=== PATIENT | male | born 1955 | race Caucasian/White ===

== ENCOUNTER 2018-10-12 17:15 | Emergency (ER) | payer MEDICARE ==
[2018-10-12 18:07] LABS: Hematocrit 42.1 % (42-50); Hemoglobin 14.5 gm/dl (12.5-18.0); Mean Cell Volume 95.5 fl (78-100); Mean Corpuscular Hemoglobin 32.9 pg (26-32); Mean Corpuscular Hgb Concent. 34.4 g/dl (32-36); Mean Platelet Volume 9.6 fl (6-9.5); Platelet Count 240 K/mm3 (150-450); Red Blood Count 4.41 M/mm3 (4.1-5.6); Red Cell Distribution Width 13.6 % (11.5-14.0); White Blood Count 11.8 K/mm3 (4.0-10.5)
[2018-10-12 18:15] LABS: INR 3.88 (0.8-3.0); PROTIME 45.7 SECONDS (8.83-12.87)
--- NOTE | 2018-10-12 18:27 | ERPHSYRPT ---
- History of Present Illness Time Seen by Provider: 10/12/18 17:21 Source: patient Exam Limitations: no limitations Patient Subjective Stated Complaint: Pt states "I have a bad knee and last night it started to swell and now it really hurts." Triage Nursing Assessment: Pt alert and oriented X 3, skin pwd. Pt left knee swollen, no redness noted, no warmth noted, csm x 4. Pt in no apparent respiratory distress. PT unable to bear weight on it. Physician History: patient developed spontaneous pain and swelling of left knee this am- no known injury- s/p total knee left on 2009; on blood thinner - coumadin for blood clots - no trauma; no fever; no sob; no changein dose- no signs of bleeding elsewhere ; no CP; selling seems alittle less in knee now then am but leg still swolllen Method of Injury: unknown Occurred: this morning Quality: constant Severity of Pain-Max: severe Severity of Pain-Current: moderate Lower Extremities Pain: knee: left (pain and swelling) Modifying Factors: Improves With: immobilization (helps), movement (aggravate) Allergies/Adverse Reactions: No Known Drug Allergies Allergy (Verified 09/28/14 11:28) Home Medications: Nortriptyline HCl [Pamelor] 50 mg PO HS 01/16/13 [History] Divalproex Sodium [Depakote] 250 mg PO DAILY 07/28/14 [History] Lisinopril 10 mg [Zestril 10 MG] 20 mg PO DAILY 07/28/14 [History] Hx Tetanus, Diphtheria Vaccination/Date Given: No Hx Influenza Vaccination/Date Given: No Hx Pneumococcal Vaccination/Date Given: No Immunizations Up to Date: Yes - Review of Systems Constitutional: No Symptoms Eyes: No Symptoms Ears, Nose, & Throat: No Symptoms Respiratory: No Cough, No Dyspnea, No Wheezing Cardiac: No Chest Pain, No Palpitations, No Syncope Abdominal/Gastrointestinal: No Abdominal Pain, No Nausea, No Vomiting, No Diarrhea Genitourinary Symptoms: No Hematuria, No Flank Pain, No Testicle Pain Musculoskeletal: Joint Pain (left knee), Joint Swelling (left knee) Skin: No Symptoms Neurological: No Symptoms Psychological: No Symptoms Endocrine: No Symptoms Hematologic/Lymphatic: Anemia, Blood Clots, Easy Bruising Immunological/Allergic: No Symptoms - Past Medical History Pertinent Past Medical History: Yes Neurological History: Migraines, Other ENT History: No Pertinent History Cardiac History: High Cholesterol, Hypertension Respiratory History: Pulmonary Embolism Endocrine Medical History: No Pertinent History Musculoskeletal History: Arthritis, Other GI Medical History: GERD, Gallbladder Disease, Hernia History: No Pertinent History Psycho-Social History: No Pertinent History Male Reproductive Disorders: No Pertinent History Other Medical History: HS BLOOD CLOTS, PE in 2012, headaches, knee replacement man - Past Surgical History Past Surgical History: Yes Neuro Surgical History: No Pertinent History Cardiac: No Pertinent History Respiratory: No Pertinent History Gastrointestinal: Appendectomy, Hernia Repair Genitourinary: No Pertinent History Musculoskeletal: Joint Replacement Male Surgical History: Vasectomy Other Surgical History: L Knee replacement. right knee scope done twice. left knee scoped once prior to this recent replacement. RIGHT KNEE REPLACMENT - Social History Smoking Status: Former smoker Exposure to second hand smoke: No Alcohol Use: None Drug Use: none Patient Lives Alone: No Significant Family History: heart disease, diabetes, hypertension - Nursing Vital Signs Nursing Vital Signs: Initial Vital Signs Temperature 98.1 F 10/12/18 17:35 Pulse Rate 86 10/12/18 17:35 Respiratory Rate 20 10/12/18 17:35 Blood Pressure 130/75 10/12/18 17:35 O2 Sat by Pulse Oximetry 95 10/12/18 17:35 Pain Scale Pain Intensity 6 - Physical Exam General Appearance: moderate distress, alert, obese Eyes, Ears, Nose, Throat Exam: normal ENT inspection, pharynx normal, moist mucous membranes Neck Exam: normal inspection, non-tender, supple, full range of motion, No JVD Cardiovascular/Respiratory Exam: chest non-tender, normal breath sounds, regular rate/rhythm, heart sounds normal, no ecchymosis, no JVD, no M/R/G, no respiratory distress Gastrointestinal/Abdominal Exam: non-tender, soft, no organomegaly Back Exam: normal inspection, normal range of motion, No CVA tenderness, No vertebral tenderness Hips Exam: bilateral: non-tender, normal inspection, normal range of motion, no evidence of injury Legs Exam: right leg: non-tender, normal inspection, normal range of motion, no evidence of injury, left leg: pain, swelling, other (cant left left leg off bed due to pain- stable to stress; decrease ROM from pain) Knees Exam: right knee: non-tender, normal inspection, normal range of motion, no evidence of injury, left knee: joint effusion, pain, swelling Ankle Exam: bilateral ankle: non-tender, normal inspection, normal range of motion, no evidence of injury Foot Exam: bilateral foot: non-tender, normal inspection, normal range of motion , no evidence of injury Neuro/Tendon Exam: normal sensation, normal motor functions, normal tendon functions, responds to pain, no evidence tendon injury Mental Status Exam: alert, 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, cooperative Skin Exam: normal color, warm, dry, No rash SpO2 Interpretation: normal SpO2: 95 O2 Delivery: Room Air Procedures - Splinting Location of Splint: Left, Knee Type of Splint: Other (knee immobilyzer) Splint Applied By: ED Nurse Pre-Proc Neuro Vasc Exam: normal Post-Proc Neuro Vasc Exam: neurovascular intact - Course Nursing assessment & vital signs reviewed: Yes - Radiology Exams Left Knee X-ray Interpretation: Interpreted by me, Negative, No Fracture, Other (SP TOTAL KNEE W LARGE EFFUSION) - Radiology Ultrasound Exam Left Venous Lower Extremity Ultrasound: tele radiology report, negative (FOR DVT) Ordered Tests: Active Orders 24 hr Category Date Time Status Cold Application STAT Care 10/12/18 17:52 Active Re-Check Vital Signs STAT Care 10/12/18 17:52 Active Splint STAT Care 10/12/18 19:02 Active KNEE (3 VIEWS) Stat Exams 10/12/18 17:53 Taken VENOUS UNILAT/LIMITED EXTREMIT [US] Stat Exams 10/12/18 17:54 Taken CBC Stat Lab 10/12/18 18:05 Completed PROTIME WITH INR Stat Lab 10/12/18 18:05 Completed PTT Stat Lab 10/12/18 18:05 Completed Medication Summary Discontinued Medications Generic Name Dose Route Start Last Admin Trade Name Freq PRN Reason Stop Dose Admin Hydromorphone HCl 2 mg 10/12/18 18:50 10/12/18 19:15 Hydromorphone 1 Mg/Ml Ampule IM 10/12/18 18:51 2 mg STAT ONE Administration Hydromorphone HCl Confirm 10/12/18 19:13 Hydromorphone 1 Mg/Ml Ampule Administered 10/12/18 19:14 Dose 2 mg .ROUTE .[facility] ONE Lab/Rad Data: Laboratory Result Diagrams 10/12/18 18:05 Laboratory Results 10/12/18 10/12/18 10/12/18 Range/Units 18:05 18:05 18:05 WBC 11.8 H (4.0-10.5) K/mm3 RBC 4.41 (4.1-5.6) M/mm3 Hgb 14.5 (12.5-18.0) gm/dl Hct 42.1 (42-50) % MCV 95.5 (78-100) fl MCH 32.9 H (26-32) pg MCHC 34.4 (32-36) g/dl RDW 13.6 (11.5-14.0) % Plt Count 240 (150-450) K/mm3 MPV 9.6 H (6-9.5) fl PT 45.7 H (8.83-12.87) SECONDS INR 3.88 H (0.8-3.0) APTT 45.9 H (24.1-36.1) SECONDS - Progress Progress: improved (after meds), re-examined (aFTER XR) Progress Note: 10/12/18 18:28 ICE APPLIED; LABS DRAWN; xr AND us PENDING inr 3.88PTT 45.9; PT 45.7; PLT 240 H/H = 1410/12/18 19:23 recheck and pain and selling better; instructions given after knee immobilyzer placed Counseled pt/family regarding: diagnosis, need for follow-up, rad results - Departure Departure Disposition: Home Clinical Impression: left knee effusion acute Condition: Stable Critical Care Time: No Referrals: BRENDEN TRUJILLO [Primary Care Provider] - Instructions: Knee Pain (DC) Additional Instructions: ice; elevate; rest; wear splint; see LMD or Orthopod in am for recheck Acute Sprain Instructions lower extremity; R.I.C.E.; wear splint/immobilyzer as directed; observe for neuro-vascular compromise ( change in color; increased pain; cold to touch); Use crutches, walker, cane as directed. FU LMD/ specialist as directed; call for appointment as directed; Return if problems; Take meds as prescribed. Follow-up with family doctor as directed. Call for appointment. Return if any problems. If you smoke please stop. Call or follow up with your family doctor for assistance if you need it to stop. Please wear your seatbelt when driving. Have a nice day. Thank you for allowing us to participate in your care today. :o) Dr Valente Velasco
[2018-10-12] MEDS ORDERED: Hydromorphone 1 mg/ml Ampule IM ONE (18:50)
[2018-10-12] MEDS ORDERED: Hydromorphone 1 mg/ml Ampule ONE (19:13)
[2018-10-12] MEDS ORDERED: NORCO 5/325 MG PO ONE (19:26)
[2018-10-12] MEDS ORDERED: NORCO 5/325 MG ONE (19:59)
[2018-10-12 20:16] VITALS: BP 136/94; PULSE 16; O2SAT 97
--- NOTE | 2018-10-13 08:33 | XRAY ---
Indication: Pain and swelling. History DVT. Two-dimensional sonogram and color Doppler imaging of the major venous vessels of the left leg was performed. Comparison: February 16, 2012. Again no thrombus seen in the examined deep venous vessels of the left leg including greater saphenous vein. Veins demonstrate normal compressibility. Venous waveforms are normal with and without augmentation. Impression: Left leg again negative for DVT. Comment: Preliminary report was given.
--- NOTE | 2018-10-13 08:47 | XRAY ---
Indication: Pain and swelling. Comparison: None 3 views of the left knee demonstrates total knee arthroplasty with intact articulation/prosthesis. Elsewhere large effusion, posterior fabella/heterotopic ossifications, and mild scattered vascular calcifications. No other bony, articular, or soft tissue abnormalities.
== END 2018-10-12 20:23 | disposition home or self-care (01) ==
LOC: ED 17:15
DX: M25.462 Effusion, left knee (principal); M25.562 Pain in left knee
CPT/HCPCS: 36415; 73562; 85027; 85610; 85730; 93971; 96372; 99284; J1170; L1830; A9270-GY

== ENCOUNTER 2021-04-06 13:00 | Emergency (ER) | payer MEDICARE ==
[2021-04-06] MEDS ORDERED: DECADRON 10MG INJ. IV ONE (13:39)
[2021-04-06] MEDS ORDERED: DECADRON 10MG INJ. ONE (13:47)
--- NOTE | 2021-04-06 13:48 | ERPHSYRPT ---
- History of Present Illness Time Seen by Provider: 04/06/21 13:11 Source: patient Exam Limitations: no limitations Patient Subjective Stated Complaint: SOB Triage Nursing Assessment: Patient ambulated back to ED and transferred self to bed. Patient A+O x3. Patient's skin pink, warm and dry. Patient complains of SOB, fever, cough, loss of taste/smell, Headache, Bodyaches, fatigue. Patient denies pain or discomfort. Lungs clear a/p man. Patient took home Covid test on March 28, 2021, which was positive. Physician History: 65 years old male with history of hypertension, GERD, pulmonary embolism/DVT on Coumadin, unvaccinated against COVID-19 presented to the ER with increasing shortness of breath and cough for almost 10-12 days. Patient report he tested positive for COVID-19 on March 28 at home and since then having progressively increasing shortness of breath initially with heavy activity and now with mini mal activity with heaviness and tightness of the chest and minimal productive cough. Also having subjective feeling of fever chills, body aches, headache, loss of taste and smell. Patient feels weak and fatigued. Denies any nausea vomiting or diarrhea. Timing/Duration: day(s) (10), gradual onset, worse Activities at Onset: rest Severity of Dyspnea-Max: moderate Severity of Dyspnea-Current: moderate Possible Cause: illness exposure Modifying Factors: Improves With: rest. Worsens With: coughing, exertion Associated Symptoms: cough, chest pain/discomfort, wheezing, productive cough, tightness Allergies/Adverse Reactions: No Known Drug Allergies Allergy (Verified 04/06/21 13:25) Home Medications: Omeprazole 20 MG [Prilosec 20 mg] 20 mg PO DAILY 05/23/19 [History] Sumatriptan Succinate [Imitrex] 100 mg PO Q2H/PRN PRN 05/23/19 [History] Losartan Potassium 50 mg PO DAILY 08/01/20 [History] Hx Tetanus, Diphtheria Vaccination/Date Given: No Hx Influenza Vaccination/Date Given: No Hx Pneumococcal Vaccination/Date Given: No Immunizations Up to Date: Yes Travel Risk - International Travel Have you traveled outside of the country in past 3 weeks: No - Coronavirus Screening Are you exhibiting any of the following symptoms?: Yes Symptoms: Fever, Cough: New Onset, Shortness of Breath, Loss of Taste or Smell, Headaches/Body Aches/Fatigue Close contact with a COVID-19 positive Pt in past 14-21 Days: Yes - Vaccine Status Have you recieved a Covid-19 vaccination: No - Review of Systems Constitutional: Fever, Chills, Fatigue, Weakness Eyes: No Symptoms Ears, Nose, & Throat: No Symptoms Respiratory: Cough, Dyspnea, Dyspnea on Exertion (VANN), Wheezing Cardiac: No Symptoms Abdominal/Gastrointestinal: No Symptoms Genitourinary Symptoms: No Symptoms Musculoskeletal: Myalgias Skin: No Symptoms Neurological: Headache Psychological: No Symptoms Endocrine: No Symptoms Hematologic/Lymphatic: No Symptoms Immunological/Allergic: No Symptoms - Past Medical History Pertinent Past Medical History: Yes Neurological History: Migraines, Other ENT History: No Pertinent History Cardiac History: High Cholesterol, Hypertension Respiratory History: Pulmonary Embolism Endocrine Medical History: No Pertinent History Musculoskeletal History: Arthritis, Other GI Medical History: GERD, Gallbladder Disease, Hernia History: No Pertinent History Psycho-Social History: No Pertinent History Male Reproductive Disorders: No Pertinent History Other Medical History: HS BLOOD CLOTS, PE in 2011, headaches, knee replacement man - Past Surgical History Past Surgical History: Yes Neuro Surgical History: No Pertinent History Cardiac: No Pertinent History Respiratory: No Pertinent History Gastrointestinal: Appendectomy, Hernia Repair Genitourinary: No Pertinent History Musculoskeletal: Joint Replacement Male Surgical History: Vasectomy Other Surgical History: L Knee replacement. right knee scope done twice. left knee scoped once prior to this recent replacement. RIGHT KNEE REPLACMENT - Social History Smoking Status: Former smoker Exposure to second hand smoke: No Alcohol Use: None Drug Use: none Patient Lives Alone: No Significant Family History: heart disease, diabetes, hypertension - Nursing Vital Signs Nursing Vital Signs: Initial Vital Signs Temperature 98.6 F 04/06/21 13:27 Pulse Rate 87 04/06/21 13:27 Respiratory Rate 19 04/06/21 13:27 Blood Pressure 134/83 04/06/21 13:27 O2 Sat by Pulse Oximetry 92 L 04/06/21 13:27 Pain Scale Pain Intensity 0 - Physical Exam General Appearance: no apparent distress, alert Eye Exam: PERRL/EOMI, eyes nml inspection Ears, Nose, Throat Exam: hearing grossly normal, pharyngeal erythema Neck Exam: normal inspection, non-tender, full range of motion Respiratory Exam: normal breath sounds, rhonchi, wheezing, No respiratory distress Cardiovascular/Chest Exam: normal heart sounds, regular rate/rhythm Abdominal/Gastrointestinal Exam: soft, No tenderness Extremity Exam: non-tender, normal range of motion Neurologic Exam: alert, 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, cooperative Skin Exam: normal color SpO2 Interpretation: normal SpO2: 94 O2 Delivery: Room Air - Course EKG Interpreted by Me: RATE (86), Sinus Rhythm, NORMAL AXIS, NORMAL INTERVALS, NORMAL QRS Ordered Tests: Active Orders 24 hr Category Date Time Status Motor Electrician STAT Care 04/06/21 13:39 Active EKG-ER Only STAT Care 04/06/21 13:38 Active IV Insertion STAT Care 04/06/21 13:38 Active Oxygen-ED Only Nasal Cannula 2 lpm Care 04/06/21 14:09 Active CHEST 1 VIEW (PORTABLE) Stat Exams 04/06/21 13:39 Taken BLOOD CULTURE Stat Lab 04/06/21 14:05 Received CBC W DIFF Stat Lab 04/06/21 13:55 Completed CMP Stat Lab 04/06/21 13:55 Completed Lactic Acid Stat Lab 04/06/21 13:38 Completed NT PRO BNP Stat Lab 04/06/21 13:55 Completed PROTIME WITH INR Stat Lab 04/06/21 13:55 Completed TROPONIN Q3H Lab 04/06/21 13:55 Completed TROPONIN Q3H Lab 04/06/21 16:45 Ordered TROPONIN Q3H Lab 04/06/21 19:45 Ordered TROPONIN Q3H Lab 04/06/21 22:45 Ordered TROPONIN Q3H Lab 04/07/21 01:45 Ordered Medication Summary Discontinued Medications Generic Name Dose Route Start Last Admin Trade Name Freq PRN Reason Stop Dose Admin Dexamethasone Sodium Phosphate 6 mg 04/06/21 13:39 04/06/21 13:48 Decadron 10mg Inj. IV 04/06/21 13:40 6 mg STAT ONE Administration Dexamethasone Sodium Phosphate Confirm 04/06/21 13:47 Decadron 10mg Inj. Administered 04/06/21 13:48 Dose 10 mg .ROUTE .[facility] ONE Lab/Rad Data: Laboratory Result Diagrams 04/06/21 13:55 04/06/21 13:55 Laboratory Results 04/06/21 04/06/21 04/06/21 Range/Units 13:55 13:55 13:55 WBC (4.0-10.5) K/mm3 RBC (4.1-5.6) M/mm3 Hgb (12.5-18.0) gm/dl Hct (42-50) % MCV (78-100) fl MCH (26-32) pg MCHC (32-36) g/dl RDW (11.5-14.0) % Plt Count (150-450) K/mm3 MPV (7.5-11.0) fl Gran % (36.0-66.0) % Eos # (Auto) (0-0.5) Absolute Lymphs (auto) (1.0-4.6) Absolute Monos (auto) (0.0-1.3) Lymphocytes % (24.0-44.0) % Monocytes % (0.0-12.0) % Eosinophils % (0.00-5.0) % Basophils % (0.0-0.4) % Absolute Granulocytes (1.4-6.9) Basophils # (0-0.4) PT 31.4 H (9.4-12.5) SECONDS INR 2.66 (0.8-3.0) Sodium 139 (137-145) mmol/L Potassium 3.7 (3.5-5.1) mmol/L Chloride 105 (98-107) mmol/L Carbon Dioxide 24 (22-30) mmol/L Anion Gap 13.0 (5-15) MEQ/L BUN 18 (9-20) mg/dL Creatinine 0.93 (0.66-1.25) mg/dL Estimated GFR > 60.0 ML/MIN Glucose 106 (74-106) mg/dL Lactic Acid (0.4-2.0) Calcium 8.5 (8.4-10.2) mg/dL Total Bilirubin 0.90 (0.2-1.3) mg/dL AST 96 H (17-59) U/L ALT 41 (0-50) U/L Alkaline Phosphatase 109 (38-126) U/L Troponin I < 0.012 (0.000-0.034) ng/mL NT-Pro-B Natriuret Pep 64.9 (0-900) pg/mL Serum Total Protein 7.1 (6.3-8.2) g/dL Albumin 4.0 (3.5-5.0) g/dL 10/10/21 10/10/21 Range/Units 13:55 13:38 WBC 4.9 (4.0-10.5) K/mm3 RBC 4.76 (4.1-5.6) M/mm3 Hgb 15.2 (12.5-18.0) gm/dl Hct 45.7 (42-50) % MCV 96.0 (78-100) fl MCH 31.9 (26-32) pg MCHC 33.3 (32-36) g/dl RDW 13.8 (11.5-14.0) % Plt Count 177 (150-450) K/mm3 MPV 10.3 (7.5-11.0) fl Gran % 61.7 (36.0-66.0) % Eos # (Auto) 0 (0-0.5) Absolute Lymphs (auto) 1.60 (1.0-4.6) Absolute Monos (auto) 0.28 (0.0-1.3) Lymphocytes % 32.4 (24.0-44.0) % Monocytes % 5.7 (0.0-12.0) % Eosinophils % 0.0 (0.00-5.0) % Basophils % 0.2 (0.0-0.4) % Absolute Granulocytes 3.05 (1.4-6.9) Basophils # 0.01 (0-0.4) PT (9.4-12.5) SECONDS INR (0.8-3.0) Sodium (137-145) mmol/L Potassium (3.5-5.1) mmol/L Chloride (98-107) mmol/L Carbon Dioxide (22-30) mmol/L Anion Gap (5-15) MEQ/L BUN (9-20) mg/dL Creatinine (0.66-1.25) mg/dL Estimated GFR ML/MIN Glucose (74-106) mg/dL Lactic Acid 1.0 (0.4-2.0) Calcium (8.4-10.2) mg/dL Total Bilirubin (0.2-1.3) mg/dL AST (17-59) U/L ALT (0-50) U/L Alkaline Phosphatase (38-126) U/L Troponin I (0.000-0.034) ng/mL NT-Pro-B Natriuret Pep (0-900) pg/mL Serum Total Protein (6.3-8.2) g/dL Albumin (3.5-5.0) g/dL - Progress Progress: unchanged Air Movement: good Progress Note: 04/06/21 15:47 65 years old with positive Covid is evaluated for increasing shortness of breath along with other Covid symptoms. Patient initial oxygen saturation was in low 90s but while resting on the bed of sats dropped to 88% without any exertional activities. Placed on 2 L oxygen and satting around 95%. Does have bilateral airspace disease. Work-up otherwise is grossly unremarkable. Given steroids. I believe patient needs to be admitted especially with his oxygen dropping and discussed that with patient who does not want to stay in the hospital at all. Patient states "I have to take care of kids and there is no one else to take care of them except me and my will also sick and I am sure will do all right" discussed with patient in detail about the seriousness of condition and exposing his kids to disease as well who according to him was the first to bring Covid home. Discussed with patient about worsening of condition including respiratory failure getting to the point where if he comes back after some time/few days and condition is worsening may need intubation or even mortality but he still wants to leave. Patient signed AGAINST MEDICAL ADVICE and is not confused or altered at all. Blood Culture(s) Obtained: Yes Antibiotics given: No Counseled pt/family regarding: lab results, diagnosis, need for follow-up, rad results - Departure Departure Disposition: AMA Clinical Impression: Pneumonia due to COVID-19 virus Respiratory failure Qualifiers: Chronicity: acute Respiratory failure complication: hypoxia Qualified Code(s): J96.01 - Acute respiratory failure with hypoxia Condition: Fair Critical Care Time: No Referrals: BRENDEN TRUJILLO NP [Primary Care Provider] - (Tomorrow for reevaluation) Instructions: Pneumonia, Adult (DC), Coronavirus Disease 2019 (COVID-19) Additional Instructions: Follow-up with primary care for reevaluation tomorrow. Return to ER for increasing shortness of breath/cough/persistent fever. With your condition you are high risk for worsening of respiratory failure. Use oxygen. Return to ER for worsening be reevaluated and may need admission. Prescriptions: Dexamethasone [Decadron] 6 mg PO DAILY #5 tablet Albuterol 8 gm Mdi Hfa [Ventolin Hfa MDI] 8 gm IH Q4H #1 inh
[2021-04-06 14:24] LABS: Absolute Neutrophil Ct (ANC) 3.05 (1.4-6.9); BASOPHIL % 0.2 % (0.0-0.4); Basophil (Absolute #) 0.01 (0-0.4); Eosinophil (Absolute #) 0 (0-0.5); Hematocrit 45.7 % (42-50); Hemoglobin 15.2 gm/dl (12.5-18.0); Lymphocytes % 32.4 % (24.0-44.0); Mean Corpuscular Hemoglobin 31.9 pg (26-32); Mean Corpuscular Hgb Concent. 33.3 g/dl (32-36); Mean Platelet Volume 10.3 fl (7.5-11.0); Monocyte (Absolute #) 0.28 (0.0-1.3); Monocytes % 5.7 % (0.0-12.0); Neutrophil % 61.7 % (36.0-66.0); Platelet Count 177 K/mm3 (150-450); Red Blood Count 4.76 M/mm3 (4.1-5.6); Red Cell Distribution Width 13.8 % (11.5-14.0); White Blood Count 4.9 K/mm3 (4.0-10.5)
[2021-04-06 14:27] LABS: INR 2.66 (0.8-3.0); PROTIME 31.4 SECONDS (9.4-12.5)
[2021-04-06 14:40] LABS: ALKALINE PHOSPHATASE 109 U/L (38-126); BLOOD UREA NITROGEN 18 mg/dL (9-20); CHLORIDE 105 mmol/L (98-107); Calcium 8.5 mg/dL (8.4-10.2); Carbon Dioxide 24 mmol/L (22-30); Creatinine 1 0.93 mg/dL (0.66-1.25); EST GLOMERULAR FILTRATION RATE > 60.0 ML/MIN; Glucose 106 mg/dL (74-106); NT PRO BNP 64.9 pg/mL (0-900); Potassium 3.7 mmol/L (3.5-5.1); SGOT/AST 96 U/L (17-59); SGPT/ALT 41 U/L (0-50); SODIUM 139 mmol/L (137-145); Total Protein 7.1 g/dL (6.3-8.2)
[2021-04-06 16:34] VITALS: BP 124/79; PULSE 80; O2SAT 92
--- NOTE | 2021-04-06 19:46 | XRAY ---
Indication: Short of breath. Covid 19. Comparison: September 28, 2014. Portable apical lordotic chest demonstrates new diffuse bilateral patchy airspace disease without consolidation/effusion. Heart not enlarged. Bony thorax intact with moderate degenerative changes.
== END 2021-04-06 18:04 | disposition home or self-care (01) ==
LOC: ED 13:00
DX: J12.82 Pneumonia due to coronavirus disease 2019 (principal); J96.01 Acute respiratory failure with hypoxia; R06.02 Shortness of breath; R50.9 Fever, unspecified; M79.18 Myalgia, other site; R53.83 Other fatigue; R05.9 Cough, unspecified; I10 Essential (primary) hypertension; R51.9 Headache, unspecified; Z79.01 Long term (current) use of anticoagulants; Z79.891 Long term (current) use of opiate analgesic
CPT/HCPCS: 36000; 36415; 71045; 80053; 83605; 83880; 84484; 85025; 85610; 87040; 93005; 93041; 96374; 99284; J1100

== ENCOUNTER 2023-08-09 09:59 | Emergency (ER) | payer MEDICARE ==
[2023-08-09 10:39] VITALS: RESP 18; TEMP 97.9; O2SAT 95
[2023-08-09 11:06] LABS: Absolute Neutrophil Ct (ANC) 6.58 x10^3/uL (1.4-6.9); BASOPHIL % 0.9 % (0.0-0.4); Basophil (Absolute #) 0.09 x10^3/uL (0-0.4); Eosinophil % 0.6 % (0.00-5.0); Eosinophil (Absolute #) 0.06 x10^3/uL (0-0.5); Hematocrit 44.5 % (42-50); Hemoglobin 14.9 g/dL (12.5-18.0); IMMATURE GRAN # 0.08 x10^3u/L (0.00-0.03); IMMATURE GRAN % 0.8 % (0.00-0.4); Lymphocyte (Absolute #) 2.04 x10^3/uL (1.0-4.6); Lymphocytes % 21.3 % (24.0-44.0); Mean Cell Volume 97.2 fL (78-100); Mean Corpuscular Hemoglobin 32.5 pg (26-32); Mean Corpuscular Hgb Concent. 33.5 g/dL (32-36); Mean Platelet Volume 9.2 fL (7.5-11.0); Monocyte (Absolute #) 0.73 x10^3/uL (0.0-1.3); Monocytes % 7.6 % (0.0-12.0); Neutrophil % 68.8 % (36.0-66.0); Platelet Count 277 x10^3/uL (150-450); Red Blood Count 4.58 x10^6/uL (4.1-5.6); Red Cell Distribution Width 12.8 % (11.5-14.0); White Blood Count 9.6 x10^3/uL (4.0-10.5)
[2023-08-09 11:20] LABS: ALBUMIN 4.5 g/dL (3.5-5.0); ANION GAP 10.2 MEQ/L (5-15); BILIRUBIN,TOTAL 1.1 mg/dL (0.2-1.3); Calcium 9.5 mg/dL (8.4-10.2); Creatinine 1 0.97 mg/dL (0.66-1.25); EST GLOMERULAR FILTRATION RATE 84.5 ML/MIN; Potassium 4.2 mmol/L (3.5-5.1); Total Protein 7.4 g/dL (6.3-8.2)
[2023-08-09 11:22] LABS: INR 2.28 (0.8-3.0); PROTIME 23.5 SECONDS (9.4-12.5); PTT 41.6 SECONDS (25.1-36.5)
[2023-08-09 12:10] VITALS: BP 146/98; PULSE 73
--- NOTE | 2023-08-09 12:16 | ERPHSYRPT ---
- History of Present Illness Time Seen by Provider: 08/09/23 11:32 Source: patient, family Exam Limitations: no limitations Patient Subjective Stated Complaint: Head injury Triage Nursing Assessment: Patient ambulated back to ED and transferred self to bed. Patient A+O x3. Patient's skin pink, warm and dry. Patient had a fall 2 weeks ago when he slipped and fell backwards on his ramp at home. Patient was seen by Dr. Latif last week and he ordered a CT scan. Patient had CT scan done today and received a call from Dr. Latif's office to come to ED for eval. Patient states he has an intermittent slight headache. Physician History: Patient fell 2 weeks ago and suffered a blow to the back of the head. As a consequence he has had some rather severe headaches. He denies any loss of consciousness with the original injury except he says that his daughter said he was talking "crazy" his headaches have been severe he had some numbness of the scalp also complains of occasional double vision but no nausea or vomiting. Occurred: other (2 weeks ago) Severity: moderate Head Injury Location: global Method of Injury: fell Loss of Consciousness: unsure Associated Symptoms: nausea, vomiting Allergies/Adverse Reactions: No Known Drug Allergies Allergy (Verified 08/09/23 10:30) Home Medications: Omeprazole 20 MG [Prilosec 20 mg] 20 mg PO DAILY 05/23/19 [History] SUMAtriptan succinate [Imitrex] 100 mg PO Q2H/PRN PRN 05/23/19 [History] Losartan Potassium 50 mg PO DAILY 08/01/20 [History] Hx Tetanus, Diphtheria Vaccination/Date Given: No Hx Influenza Vaccination/Date Given: No Hx Pneumococcal Vaccination/Date Given: No Immunizations Up to Date: Yes Travel Risk - International Travel Have you traveled outside of the country in past 3 weeks: No - Coronavirus Screening Are you exhibiting any of the following symptoms?: No Close contact with a COVID-19 positive Pt in past 14-21 Days: No - Vaccine Status Have you recieved a Covid-19 vaccination: No - Review of Systems Constitutional: No Fever, No Chills Eyes: No Symptoms Ears, Nose, & Throat: No Symptoms Respiratory: No Cough, No Dyspnea Cardiac: No Chest Pain, No Edema, No Syncope Abdominal/Gastrointestinal: No Abdominal Pain, No Nausea, No Vomiting, No Diarrhea Genitourinary Symptoms: No Dysuria Musculoskeletal: No Back Pain, No Neck Pain Skin: No Rash Neurological: No Dizziness, No Focal Weakness, No Sensory Changes Psychological: No Symptoms Endocrine: No Symptoms All Other Systems: Reviewed and Negative - Past Medical History Pertinent Past Medical History: Yes Neurological History: Migraines, Other ENT History: No Pertinent History Cardiac History: High Cholesterol, Hypertension Respiratory History: Pulmonary Embolism Endocrine Medical History: No Pertinent History Musculoskeletal History: Arthritis, Other GI Medical History: GERD, Gallbladder Disease, Hernia History: No Pertinent History Psycho-Social History: No Pertinent History Male Reproductive Disorders: No Pertinent History Other Medical History: HS BLOOD CLOTS, PE in 2012, headaches, knee replacement man - Past Surgical History Past Surgical History: Yes Neuro Surgical History: No Pertinent History Cardiac: No Pertinent History Respiratory: No Pertinent History Gastrointestinal: Appendectomy, Hernia Repair Genitourinary: No Pertinent History Musculoskeletal: Joint Replacement Male Surgical History: Vasectomy Other Surgical History: L Knee replacement. right knee scope done twice. left knee scoped once prior to this recent replacement. RIGHT KNEE REPLACMENT - Social History Smoking Status: Former smoker Exposure to second hand smoke: No Alcohol Use: None Drug Use: none Patient Lives Alone: No Significant Family History: heart disease, diabetes, hypertension - Nursing Vital Signs Nursing Vital Signs: Initial Vital Signs Temperature 97.9 F 08/09/23 10:32 Pulse Rate 71 08/09/23 10:32 Respiratory Rate 18 08/09/23 10:32 Blood Pressure 150/97 08/09/23 10:32 O2 Sat by Pulse Oximetry 95 08/09/23 10:32 Pain Scale Pain Intensity 0 - Lul[place] Coma Score Best Eye Response ([place]): (4) open spontaneously Best Verbal Response ([place]): (5) oriented Best Motor Response ([place]): (6) obeys commands Lulú Total: 15 - Physical Exam General Appearance: no apparent distress, alert Eye Exam: bilateral eye: PERRL, EOMI ENT Exam: airway nml Cardiovascular/Respiratory Exam: chest non-tender, normal breath sounds, regular rate/rhythm Gastrointestinal/Abdominal Exam: soft, non tender, no distention Back Exam: normal inspection, No vertebral tenderness Extremity Exam: non-tender, normal range of motion, normal inspection Mental Status Exam: alert, 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, cooperative Motor/Sensory Exam: no motor deficit, no sensory deficit, CN II-XII intact Skin Exam: normal color, warm, dry, No rash SpO2: 95 - Course Nursing assessment & vital signs reviewed: Yes Ordered Tests: Active Orders 24 hr Category Date Time Status CBC W DIFF Stat Lab 08/09/23 10:30 Completed CMP Stat Lab 08/09/23 11:00 Completed PROTIME WITH INR Stat Lab 08/09/23 11:00 Completed PTT Stat Lab 08/09/23 11:00 Completed Lab/Rad Data: Laboratory Result Diagrams 08/09/23 10:30 08/09/23 11:00 Laboratory Results 08/09/23 08/09/23 08/09/23 Range/Units 11:00 11:00 10:30 WBC 9.6 (4.0-10.5) x10^3/uL RBC 4.58 (4.1-5.6) x10^6/uL Hgb 14.9 (12.5-18.0) g/dL Hct 44.5 (42-50) % MCV 97.2 (78-100) fL MCH 32.5 H (26-32) pg MCHC 33.5 (32-36) g/dL RDW 12.8 (11.5-14.0) % Plt Count 277 (150-450) x10^3/uL MPV 9.2 (7.5-11.0) fL Gran % 68.8 H (36.0-66.0) % Immature Gran % (Auto) 0.8 H (0.00-0.4) % Nucleat RBC Rel Count 0.0 (0.00-0.1) % Eos # (Auto) 0.06 (0-0.5) x10^3/uL Immature Gran # (Auto) 0.08 H (0.00-0.03) x10^3u/L Absolute Lymphs (auto) 2.04 (1.0-4.6) x10^3/uL Absolute Monos (auto) 0.73 (0.0-1.3) x10^3/uL Absolute Nucleated RBC 0.00 (0.00-0.01) x10^3u/L Lymphocytes % 21.3 L (24.0-44.0) % Monocytes % 7.6 (0.0-12.0) % Eosinophils % 0.6 (0.00-5.0) % Basophils % 0.9 (0.0-0.4) % Absolute Granulocytes 6.58 (1.4-6.9) x10^3/uL Basophils # 0.09 (0-0.4) x10^3/uL PT 23.5 H (9.4-12.5) SECONDS INR 2.28 (0.8-3.0) APTT 41.6 H (25.1-36.5) SECONDS Sodium 136 L (137-145) mmol/L Potassium 4.2 (3.5-5.1) mmol/L Chloride 104 (98-107) mmol/L Carbon Dioxide 26 (22-30) mmol/L Anion Gap 10.2 (5-15) MEQ/L BUN 18 (9-20) mg/dL Creatinine 0.97 (0.66-1.25) mg/dL Estimated GFR 84.5 ML/MIN Glucose 111 H (74-106) mg/dL Calcium 9.5 (8.4-10.2) mg/dL Total Bilirubin 1.10 (0.2-1.3) mg/dL AST 26 (17-59) U/L ALT 15 (0-50) U/L Alkaline Phosphatase 86 (38-126) U/L Serum Total Protein 7.4 (6.3-8.2) g/dL Albumin 4.5 (3.5-5.0) g/dL - Progress Progress: unchanged Discussed with DrJose Armando: Other (We discussed the case with Dr. Sinclair at the [facility]. He agreed to accept him in evaluation in the emergency room.) Medical Desision Making - Independent Historian Additional History obtained from: Child - External Record(s) Reviewed Records reviewed as a part of evaluation & management: Clinic - Discussion of managment Care discussed with:: specialist (Dr. Sinclair neurosurgeon) Agreed on:: Treatment plan, need for follow-up Will see patient: in ED - Diagnostic Testing Radiological Interpretation: Reviewed by me - Risk of complications Low Risk: Low risk of morbidity from additional dx testing or treatment - Departure Departure Disposition: Transfer (Transfer will be initiated to [facility] to ER to [place]. Yahir is a excepting physician) Clinical Impression: Bilateral subdural hematomas Condition: Stable Critical Care Time: No Referrals: TRUDY LATIF MD [Primary Care Provider] - Follow up/PCP as directed Instructions: Head Injury in Adults (DC)
== END 2023-08-09 12:35 | disposition short-term general hospital (02) ==
LOC: ED 09:59
DX: S06.5X0A Traumatic subdural hemorrhage without loss of consciousness, initial encounter (principal); W10.2XXA Fall (on)(from) incline, initial encounter; R51.9 Headache, unspecified; E78.5 Hyperlipidemia, unspecified; I10 Essential (primary) hypertension; Z79.899 Other long term (current) drug therapy; Z28.310 Unvaccinated for COVID-19
CPT/HCPCS: 36415; 80053; 85025; 85610; 85730; 99284

== ENCOUNTER 2023-09-03 18:07 | Emergency (ER) | payer MEDICARE ==
[2023-09-03 18:29] VITALS: TEMP 98.1; O2SAT 94
--- NOTE | 2023-09-03 19:31 | ERPHSYRPT ---
- History of Present Illness Time Seen by Provider: 09/03/23 19:20 Source: patient Exam Limitations: no limitations Patient Subjective Stated Complaint: pt sent here b doc due to ct of head scan show new bleeding. pt had a head bleed 6 weeks after a fall, he was started back on coumadin on wednesday, he denies any pain Triage Nursing Assessment: pt alert,oreinted, walked in, resp easy, skin w/d/.moves all ext well. Physician History: 68yo m presents per request of PCP Dr Latif for CT head obtained 09/02/23 that showed mix of acute, subacute, and chronic hematomas. Pt was seen 3wks ago in ED for SHAH and dizziness following a fall roughly 6wks prior, pt was found to have subdural hematoma at that time, transferred to [facility] where they observed him but he did not require neurosurgical intervention. Pt had his coumadin held and followed up w/ neurology outpatient, he was restarted on his home dose coumadin 12mg on 08/30/23, had repeat head CT on 09/02/23 that showed findings mentioned above. Pt currently is asymptomatic, does report some HAs at night for the past 2-3d but currently denies weakness, blurry vision, n/v, subsequent falls, numbness, memory deficits, pt is AxO x 3. Occurred: other (10wks ago) Severity: mild Head Injury Location: occipital Method of Injury: fell Loss of Consciousness: no loss of consciousness Associated Symptoms: denies symptoms, No nausea, No vomiting, No chest pain, No headaches Allergies/Adverse Reactions: No Known Drug Allergies Allergy (Verified 09/03/23 18:24) Home Medications: Omeprazole 20 MG [Prilosec 20 mg] 20 mg PO DAILY 05/23/19 [History] SUMAtriptan succinate [Imitrex] 100 mg PO Q2H/PRN PRN 05/23/19 [History] Losartan Potassium 50 mg PO DAILY 08/01/20 [History] Hx Tetanus, Diphtheria Vaccination/Date Given: No Hx Influenza Vaccination/Date Given: No Hx Pneumococcal Vaccination/Date Given: No Immunizations Up to Date: Yes Travel Risk - International Travel Have you traveled outside of the country in past 3 weeks: No - Coronavirus Screening Are you exhibiting any of the following symptoms?: No Close contact with a COVID-19 positive Pt in past 14-21 Days: No - Vaccine Status Have you recieved a Covid-19 vaccination: No - Review of Systems Constitutional: No Symptoms Respiratory: No Symptoms Cardiac: No Symptoms Abdominal/Gastrointestinal: No Symptoms Neurological: No Dizziness, No Focal Weakness, No Gait Changes, No Headache, No Lethargy, No Paralysis, No Parasthesia, No Seizure, No Sensory Changes, No Speech Changes - Past Medical History Pertinent Past Medical History: Yes Neurological History: Migraines, Other ENT History: No Pertinent History Cardiac History: High Cholesterol, Hypertension Respiratory History: Pulmonary Embolism Endocrine Medical History: No Pertinent History Musculoskeletal History: Arthritis, Other GI Medical History: GERD, Gallbladder Disease, Hernia History: No Pertinent History Psycho-Social History: No Pertinent History Male Reproductive Disorders: No Pertinent History Other Medical History: HS BLOOD CLOTS, PE in 2011, headaches, knee replacement man, head bleed about 6 weeks ago - Past Surgical History Past Surgical History: Yes Neuro Surgical History: No Pertinent History Cardiac: No Pertinent History Respiratory: No Pertinent History Gastrointestinal: Appendectomy, Hernia Repair Genitourinary: No Pertinent History Musculoskeletal: Joint Replacement Male Surgical History: Vasectomy Other Surgical History: L Knee replacement. right knee scope done twice. left knee scoped once prior to this recent replacement. RIGHT KNEE REPLACMENT - Social History Smoking Status: Former smoker Exposure to second hand smoke: No Alcohol Use: None Drug Use: none Patient Lives Alone: No Significant Family History: heart disease, diabetes, hypertension - Nursing Vital Signs Nursing Vital Signs: Initial Vital Signs Temperature 98.1 F 09/03/23 18:28 Pulse Rate 75 09/03/23 18:28 Respiratory Rate 16 09/03/23 18:28 Blood Pressure 154/104 09/03/23 18:28 O2 Sat by Pulse Oximetry 94 L 09/03/23 18:28 Pain Scale Pain Intensity 0 - Lulú Coma Score Best Eye Response ([place]): (4) open spontaneously Best Verbal Response ([place]): (5) oriented Best Motor Response ([place]): (6) obeys commands Lulú Total: 15 - Physical Exam General Appearance: no apparent distress Head Injury: no evidence of injury Eye Exam: bilateral eye: normal inspection, PERRL, EOMI ENT Exam: airway nml, No evidence of ENT injury Neck Exam: supple, trachea midline, normal inspection Cardiovascular/Respiratory Exam: chest non-tender, normal breath sounds, regular rate/rhythm Extremity Exam: non-tender Mental Status Exam: alert, 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, 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 Exam: normal hearing, normal speech, PERRL Coordination/Gait Exam: normal finger to nose, normal gait, normal cerebellar function Motor/Sensory Exam: no motor deficit, no sensory deficit, no pronator drift, CN II-XII intact SpO2 Interpretation: normal SpO2: 94 O2 Delivery: Room Air - Progress Progress: unchanged, re-examined Progress Note: 09/03/23 19:36 NIHSS of 0 pt completely asymptomatic at time of exam, does report some HAs at night this week, repeatedly stating that he wants to go home Tele-neurology consulted for recommendations based off hx and recent imaging 09/03/23 21:08 Tele-neurology has yet to interview patient, I will request to speak w/ Neurosurgery at [facility] Pt updated, pt is irritated, requesting to go home, I recommended pt stay in ED at least until I speak w/ neurosurgery, pt agreed 09/03/23 21:10 pt continues to be asymptomatic, no neurologic deficits on brief neuro exam, AxO x 3 09/03/23 21:39 I discussed pt's case w/ Neurosurgeon at [facility] - Dr Gleason, who recommended pt be transferred ED to ED to be evaluated further for need for intervention I discussed pt's case and neurosurgeon's recommendation w/ pt and son. Pt is refusing to go to [facility] tonight, stating "he has too much to take care of at home tonight." Pt states that he would consider going to the ER at [facility] tomorrow morning by private vehicle. I reiterated the risks of pt's condition, stated that it is very possible that his condition could progress tonight and he could . Pt stated to me that he is aware that he could , states he still needs to go home and does not want to be transferred. Pt is AxO x 3, determined to have capacity to make own medical decisions, is aware of risks of his current medical condition. Pt given AMA paperwork 09/03/23 21:46 I again stated that I recommend pt be seen in ED at [facility], and that he at least goes tomorrow to be seen. Pt states he will consider going tomorrow. Counseled pt/family regarding: diagnosis, need for follow-up, rad results Medical Desision Making - External Record(s) Reviewed Records reviewed as a part of evaluation & management: Clinic - Discussion of managment Care discussed with:: specialist (neurosurgeon) Reviewed:: Test results, Need for additional workup - Diagnostic Testing Diagnostic test were ordered, analyzed, and reviewed by me: No Radiological Interpretation: Reviewed by me - Risk of complications The pt has a high risk of morbidity or mortality based on: Need for major surgery in patient with known risk factors, Decision regarding hospitilization or escalation of hosp level of care - Departure Departure Disposition: AMA Clinical Impression: Acute on chronic intracranial subdural hematoma Condition: Stable Critical Care Time: No Referrals: TRUDY LATIF MD [Primary Care Provider] - Follow up/PCP as directed Additional Instructions: I recommend pt be seen in ED at [facility], and that he at least goes tomorrow to be seen call 911 immediately if you develop SHAH, blurry vision, numbness, weakness, dizziness, vomiting, confusion, altered mental status
[2023-09-03 21:14] VITALS: BP 123/81; PULSE 66; RESP 18
== END 2023-09-03 21:55 | disposition left against medical advice (07) ==
LOC: ED 18:07
DX: I62.03 Nontraumatic chronic subdural hemorrhage (principal)
CPT/HCPCS: 99283

== ENCOUNTER 2024-02-25 06:56 | Observation (INO) | payer MEDICARE ==
[2024-02-25] MEDS: Lactated Ringers 1,000 ML IV SCH (07:22)
[2024-02-25] MEDS: TRANEXAMIC 1,000 MG/100ML-NACL 1,000 MG/100 ML PIGGYBACK IV ONE (07:24)
[2024-02-25] MEDS: TYLENOL EXTRA STRENGTH 500 MG PO ONE (07:24)
[2024-02-25] MEDS: celeBREX 100 MG PO ONE (07:25)
[2024-02-25] MEDS: Decadron 4 MG PO ONE (07:25)
[2024-02-25] MEDS: NEURONTIN PO ONE (07:25)
[2024-02-25] MEDS ORDERED: Versed 2 MG/2 ML Injection ONE (07:44)
[2024-02-25] MEDS ORDERED: Marcaine 0.5%/Epinephrine 10 ML ONE (07:44)
[2024-02-25] MEDS ORDERED: SUBLIMAZE 100 MCG/2 ML ONE ×3 (07:44→10:47)
[2024-02-25] MEDS ORDERED: Xylocaine-Mpf 2% 5 Ml Vial ONE (07:44)
[2024-02-25] MEDS ORDERED: MARCAINE 0.25% PF/ EPI 1:200,000 ONE (07:47)
[2024-02-25] MEDS ORDERED: ROCURONIUM BROMIDE IV ONE ×2 (08:56→09:26)
[2024-02-25] MEDS ORDERED: DIPRIVAN 200 MG/20 ML IV ONE (08:56)
[2024-02-25] MEDS ORDERED: KEFZOL 1 GM** 3 G in Sodium Chloride 0.9% 50 ML 50 ML IV SCH (09:00)
[2024-02-25] MEDS ORDERED: Zofran 4 MG/2 ML VIAL ONE (09:45)
[2024-02-25] MEDS ORDERED: BRIDION 200MG/2ML IV ONE (09:49)
[2024-02-25] MEDS ORDERED: Lactated Ringers 1,000 ML IV ONE (09:52)
[2024-02-25] MEDS ORDERED: BREVIBLOC 100 MG/10 ML IV ONE (10:06)
[2024-02-25] MEDS ORDERED: MORPHINE SULFATE 2 MG INJ ONE ×2 (10:20→10:34)
--- NOTE | 2024-02-25 11:47 | PCM.NOTE ---
Date and Time: 02/25/24 1145 Subjective Assessment: Patient was to go home but had some chest pain. No shortness of breath.HeCannot lift his leg off the bed yet Objective: Alert and orient x 3, no shortness of breath. Left knee wound looks good EKG was normal Troponins normal Assessment:Chest pain, patient feels that occurs when he gets the fentanyl Plan:Will admit to hospitalist for observation. Patient may weight-bear as toleratedWith walker. May resume his Coumadin.Hospice may discharge him and they feel he is stable Objective Data Vital Signs: Vital Signs - 24 hr Temp Pulse Resp BP Pulse Ox 02/25/24 07:45 97.8 F 74 20 137/86 97 02/25/24 07:33 97.8 F 74 20 137/86 97 Pain Assessment - Last Documented Pain Intensity 5 Pain Scale Used 0-10 Pain Scale Intake and Output: Intake & Output 02/22/24 02/23/24 02/24/24 02/25/24 11:59 11:59 11:59 11:59 Weight 152.4 kg Lab Results: Lab Results-Last 24 Hours 02/25/24 Range/Units 11:04 Troponin I < 0.012 (0.000-0.033) ng/mL
[2024-02-25] MEDS ORDERED: NON-FORMULARY ITEM (Fluticasone Propionate [Fluticasone Propionate] 50 MCG Blst.W.Dev) IH SCH (12:30)
[2024-02-25] MEDS ORDERED: NORCO 5/325 MG PO PRN (12:31)
--- NOTE | 2024-02-25 12:36 | PCM.SSS ---
History of Present Illness - Chief Complaint Chief Complaint: Post-Op Chest Pain, Left Patella Button Removal Date: 02/25/24 History of Present Illness: is a 68 year old male with PMHX of HTN, Migranes, hyperlipidemia, PE, arthritis, GERD, and chronic obesity. He was to go home today post op knee cap button removal by ortho today. However, he started having CP and felt SOB after IV pain med was given. This shortly resolved and he has not had any CP since. He is already wanting to leave. EKG non-concerning, Trop X2 negative. Will trend trops. PT ordered for post op needs per ortho documentation. He denies CP, SOB, abd. pain, N/V/D at this time. - Review of Systems Constitutional: No Fever, No Chills Eyes: No Symptoms Ears, Nose, & Throat: No Symptoms Respiratory: No Cough, No Short Of Breath Cardiac: Chest Pain (resolved since admission), No Edema, No Syncope Abdominal/Gastrointestinal: No Abdominal Pain, No Nausea, No Vomiting, No Diarrhea Genitourinary Symptoms: No Dysuria Musculoskeletal: Joint Pain (left knee post op procedure today), No Back Pain, No Neck Pain Skin: No Rash Neurological: No Dizziness, No Focal Weakness, No Sensory Changes Psychological: No Symptoms Endocrine: No Symptoms Hematologic/Lymphatic: No Symptoms Immunological/Allergic: No Symptoms Medications & Allergies Home Medications: Home Medication List Omeprazole 20 MG [Prilosec 20 mg] 20 mg PO DAILY 05/23/19 [History Confirmed 02/25/24] Losartan Potassium 50 mg PO DAILY 08/01/20 [History Confirmed 02/25/24] Fluticasone Propionate 50 mcg [facility] 02/04/24 [History Confirmed 02/25/24] Oxybutynin Chloride [Oxybutynin Chloride ER] 10 mg PO DAILY 02/04/24 [History Confirmed 02/25/24] Simvastatin 10 mg [Zocor 10MG] 10 mg PO DAILY 02/04/24 [History Confirmed 02/25/24] Tamsulosin HCl 0.4 mg [Flomax 0.4 MG] 0.4 mg PO DAILY 02/04/24 [History Confirmed 02/25/24] Oxycodone HCl/Acetaminophen [Percocet 5-325 mg Tablet] 1 each PO Q4H PRN PRN #30 tablet MDD 6 02/25/24 [Rx] Allergies/Adverse Reactions: Allergies Allergy/AdvReac Type Severity Reaction Status Date / Time No Known Drug Allergies Allergy Verified 02/25/24 12:29 - Past Medical History Past Medical History: Yes Neurological History: Migraines, Other ENT History: No Pertinent History Cardiac History: High Cholesterol, Hypertension Respiratory History: Pulmonary Embolism Endocrine Medical History: No Pertinent History Musculoskelatal History: Arthritis, Other GI Medical History: GERD, Gallbladder Disease, Hernia History: No Pertinent History Pyscho-Social History: No Pertinent History Male Reproductive Disorders: No Pertinent History Comment: HS BLOOD CLOTS, PE in 2012, headaches, knee replacement man, head bleed about 6 weeks ago - Past Surgical History Past Surgical History: Yes Neuro Surgical History: No Pertinent History Cardiac History: No Pertinent History Respiratory Surgery: No Pertinent History GI Surgical History: Appendectomy, Cholecystectomy, Hernia Repair Genitourinary Surgical Hx: No Pertinent History Musculskeletal Surgical Hx: Joint Replacement Male Surgical History: Vasectomy Other Surgical History: L Knee replacement. right knee scope done twice. left knee scoped once prior to this recent replacement. RIGHT KNEE REPLACMENT Significant Family History: heart disease, diabetes, hypertension - Social History Smoking Status: Former smoker Exposure to second hand smoke: No Alcohol: Weekly Drug Use: none - Social Determinants of Health Will the patient participate in the screening: Yes Do you worry about a steady place to live?: No Do you have any problems with any of the following?: No known problems In the past 12 months,have you had to go without utilities?: No Have you or anyone in your house had to go without enough: No Transportation Issues: No Has anyone in your support network made you feel unsafe?: No Does the patient want assistance with any of the above?: No - Physical Exam Vital Signs: Vital Signs - 24 hr Temp Pulse Resp BP Pulse Ox 02/25/24 11:57 97.2 F 73 18 147/86 96 02/25/24 07:45 97.8 F 74 20 137/86 97 02/25/24 07:33 97.8 F 74 20 137/86 97 General Appearance: no apparent distress, alert, obese Neurologic Exam: alert, 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, cooperative, normal mood/affect, nml cerebellar function, nml station & gait, sensation nml, No motor deficits Eye Exam: PERRL/EOMI, eyes nml inspection Ears, Nose, Throat Exam: normal ENT inspection, TMs normal, pharynx normal, moist mucous membranes Neck Exam: normal inspection, non-tender, supple, full range of motion Respiratory Exam: normal breath sounds, lungs clear, No respiratory distress Cardiovascular Exam: regular rate/rhythm, normal heart sounds, normal peripheral pulses Gastrointestinal/Abdomen Exam: soft, normal bowel sounds, distention, No tenderness, No mass Back Exam: normal inspection, normal range of motion, No CVA tenderness, No vertebral tenderness Extremity Exam: normal inspection, normal range of motion, pelvis stable Skin Exam: normal color, warm, dry, No rash Lymphatic Exam: No adenopathy Results - Labs Lab/Micro Results: Lab Results-Last 24 Hours 02/25/24 Range/Units 11:04 Troponin I < 0.012 (0.000-0.033) ng/mL - Radiology Impressions Radiology Exams & Impressions: Radiology Procedures Category Date Time Status CHEST 1 VIEW (PORTABLE) Stat Exams 02/25/24 12:20 Ordered Assessment/Plan (1) Chest pain Current Visit: No Status: Acute Assessment & Plan: - resolved since admission - Cp after IV pain med gave and none since - EKG, lipid panel, TSH, Trop x3- trend - if trops negative pt wants to d/c today. - Tele Code(s): R07.9 - CHEST PAIN, UNSPECIFIED (2) S/P knee surgery Current Visit: Yes Status: Acute Assessment & Plan: - see ortho note - Post op knee cap button removal per ortho - PT eval per ortho note - narcotic pain meds PRN Code(s): Z98.890 - OTHER SPECIFIED POSTPROCEDURAL STATES (3) Morbid obesity with BMI of 45.0-49.9, adult Current Visit: Yes Status: Chronic Assessment & Plan: - advised diet and exercise control Code(s): E66.01 - MORBID (SEVERE) OBESITY DUE TO EXCESS CALORIES; Z68.42 - BODY MASS INDEX [BMI] 45.0-49.9, ADULT (4) BPH (benign prostatic hyperplasia) Current Visit: Yes Status: Chronic Assessment & Plan: - continue home meds Code(s): N40.0 - BENIGN PROSTATIC HYPERPLASIA WITHOUT LOWER URINRY TRACT SYMP (5) HTN (hypertension) Current Visit: Yes Status: Chronic Assessment & Plan: - stable- continue home meds - Post op IVF stopped Code(s): I10 - ESSENTIAL (PRIMARY) HYPERTENSION (6) Hyperlipidemia Current Visit: Yes Status: Chronic Assessment & Plan: - continue statin Code(s): E78.5 - HYPERLIPIDEMIA, UNSPECIFIED Hospital Summary - Hospital Course Hospital Course: is a 68 year old male with PMHX of HTN, Migranes, hyperlipidemia, PE, arthritis, GERD, and chronic obesity. He was to go home today post op knee cap button removal by ortho today. However, he started having CP and felt SOB after IV pain med was given. This shortly resolved and he has not had any CP since. He is already wanting to leave. EKG non-concerning, Trop X2 negative. Will trend trops if 3rd trop negative will d/c. . PT ordered for post op needs per ortho documentation. He denies CP, SOB, abd. pain, N/V/D at this time. - Vitals & Intake/Output Vital Signs: Vital Signs Temperature 97.2 F 02/25/24 11:57 Pulse Rate 73 02/25/24 11:57 Respiratory Rate 18 02/25/24 11:57 Blood Pressure 147/86 02/25/24 11:57 O2 Sat by Pulse Oximetry 96 02/25/24 11:57 Intake & Output: Intake & Output 02/23/24 02/24/24 02/25/24 02/26/24 11:59 11:59 11:59 11:59 Weight 155.1 kg - Lab Result Diagrams: 02/25/24 12:35 02/25/24 12:35 Lab Results-Last 24 Hrs: Lab Results-Last 24 Hours 02/25/24 Range/Units 11:04 Troponin I < 0.012 (0.000-0.033) ng/mL - Radiology Exams Ordered Rad Exams-Entire Visit: Radiology Procedures Category Date Time Status CHEST 1 VIEW (PORTABLE) Stat Exams 02/25/24 12:20 Ordered - Discharge Discharge Date: 02/25/24 Disposition: Home, Self-Care Condition: Stable Prescriptions: New Oxycodone HCl/Acetaminophen [Percocet 5-325 mg Tablet] 1 each PO Q4H PRN PRN #30 tablet MDD 6 PRN Reason: Moderate To Severe Pain Continue Omeprazole 20 MG [Prilosec 20 mg] 20 mg PO DAILY Losartan Potassium 50 mg PO DAILY Tamsulosin HCl 0.4 mg [Flomax 0.4 MG] 0.4 mg PO DAILY Simvastatin 10 mg [Zocor 10MG] 10 mg PO DAILY Oxybutynin Chloride [Oxybutynin Chloride ER] 10 mg PO DAILY Fluticasone Propionate 50 mcg [facility] UD Instructions: Chest pain - Discharge instructions Additional Instructions: May remove dressing in 5 days and shower at that time. Weight Bearing as tolerated Follow-up with Haris Ochoa on 03/09/24 at 1:30 pm. Follow up with: TRUDY LATIF MD [Primary Care Provider] - 03/03/24 11:00 am HARIS OCHOA NP [NON-STAFF PHY W/O PRIVILEGES] - 03/09/24 1:30 pm
[2024-02-25 12:41] LABS: Hematocrit 43.4 % (40.1-51.0); Hemoglobin 14.4 g/dL (13.7-17.5); Mean Cell Volume 96.7 fL (79.0-92.2); Mean Corpuscular Hemoglobin 32.1 pg (25.7-32.2); Mean Corpuscular Hgb Concent. 33.2 g/dL (32.3-36.5); Mean Platelet Volume 9.1 fL (9.4-12.4); Platelet Count 217 x10^3/uL (163-337); Red Blood Count 4.49 x10^6/uL (4.63-6.08); Red Cell Distribution Width 12.6 % (11.6-14.4); White Blood Count 7.5 x10^3/uL (4.23-9.07)
[2024-02-25] MEDS ORDERED: MEDICATION INTERVENTION MC SCH (12:45)
--- NOTE | 2024-02-25 12:49 | XRAY ---
Indication: Chest pain. Comparison: May 07, 2021 Portable apical lordotic chest now underinflated and is now clear. Heart not enlarged with again tortuous descending aorta. Bony thorax intact again with osteopenia and degenerative changes. Impression: Nonacute underinflated chest with chronic features.
[2024-02-25] MEDS: Ditropan XL 5 MG PO SCH (13:11)
[2024-02-25] MEDS: Zocor 10MG PO SCH (13:11)
[2024-02-25] MEDS: Flomax 0.4 MG PO SCH (13:11)
[2024-02-25] MEDS ORDERED: MORPHINE SULFATE 2 MG INJ IV PRN (13:30)
[2024-02-25] MEDS ORDERED: Zofran 4 MG/2 ML VIAL IV PRN (13:37)
[2024-02-25 13:41] LABS: ALBUMIN 4.1 g/dL (3.5-5.0); ANION GAP 13.1 MEQ/L (5-15); BILIRUBIN,TOTAL 0.6 mg/dL (0.2-1.3); Calcium 9.2 mg/dL (8.4-10.2); Creatinine 1 0.99 mg/dL (0.66-1.25); EST GLOMERULAR FILTRATION RATE 82.5 ML/MIN; Potassium 4.9 mmol/L (3.5-5.1); TSH, 3RD Generation 1.65 mIU/L (0.470-4.680); Total Protein 6.8 g/dL (6.3-8.2)
[2024-02-25] MEDS: Zofran 4 MG/2 ML VIAL IV SCH (13:43)
[2024-02-25] MEDS: PERCOCET TABLET 5/325MG PO PRN (14:43)
[2024-02-25] MEDS: CEFAZOLIN 2 GM/100 ML NaCl 2 GM/100 ML IVPB IV SCH (16:42)
[2024-02-25 18:56] VITALS: BP 138/77; PULSE 73; RESP 18; TEMP 97.4; O2SAT 95
[2024-02-26] MEDS ORDERED: Cozaar 50 MG PO SCH (10:00)
[2024-02-26] MEDS ORDERED: Protonix 40MG Tablet PO SCH (10:00)
--- NOTE | 2024-02-27 21:18 | OP ---
SURGERY DATE/TIME: 02/25/2024 [id number] DIAGNOSIS: Loosening of left patellar component of total knee replacement. PROCEDURE PERFORMED: Removal of left knee patellar button. SURGEON: Al Tristan MD ANESTHESIA: General with regional block. FINDINGS: Completely loose patella floating in the medial parapatellar tissue. The patella seemed too eroded to try to re-cement. INDICATION FOR PROCEDURE: Patient is a 68-year-old white male who had a left total knee replacement done by another surgeon about 12 years ago with a [employer] knee. He was having pain with a palpable loose body under his patella and which I have just advised with the thought being that if possible we would re-cement a patellar button but leave it out if not. DESCRIPTION OF PROCEDURE AND FINDINGS: Patient was seen in the holding room. We identified the left knee as correct knee. This was initialed by me. He had 1000 mg of tranexamic acid and 2 g of Kefzol. He was taken to the OR where he had general anesthesia. He was positioned supine with a bump under his left hip. He had sterile prepping and draping of the left lower extremity. He had a leg adam used. Leg was covered with Ioban. Time-out was performed. The leg was then exsanguinated by gravity. Tourniquet was inflated around the upper thigh to 250 mmHg. Total tourniquet time was approximately 20 minutes. The previous old anterior incision was more medial than usual but was used again. This was opened up down to the fascial level. Then, the medial parapatellar approach was made excluding the quadriceps tendon 10% and 90%. The patella was everted. The button was seen floating loose in the medial parapatellar tissue. This was removed and had only a slight amount of cement left on the back of it. The patella was everted and was felt to be too eroded to try to re-cement. Therefore, the knee was thoroughly irrigated. The knee was checked for stability and the spacer was checked and was felt to be stable and not needing replacement. The tourniquet was then released. Tissue was sent for culture for aerobic and anaerobic, as well as tissue for PMNs per high power field in formalin. The medial parapatellar approach was then closed with interrupted #5 MaxBraid as the #2 MaxBraid was not available. A #1 Stratafix suture was then placed in a running stitch for additional closure. The patella tracked midline. The subcutaneous tissues were closed with 2-0 Vicryl and the skin with cesar. A sterile dressing was applied. ESTIMATED BLOOD LOSS: 75 mL. SPECIMENS: Cultures and permanent tissue. DRAINS: None. COMPLICATIONS: None. Plan is for the patient to be weightbearing as tolerated. He will be discharged home today. He may remove the dressing and shower postoperative day 5. He will return in 10 to 12 days for staple removal. He will go home on Percocet 5 mg, 1 p.o. every 4 hours p.r.n., dispense #30. He may resume Coumadin today. He will start physical therapy next week.
== END 2024-02-25 19:26 | disposition home or self-care (01) ==
LOC: SDC 06:56 → MED SURG 11:38
PROVIDERS: ADMIT Internal Medicine; ATTEND Internal Medicine
DX: R07.9 Chest pain, unspecified (principal); T84.033A Mechanical loosening of internal left knee prosthetic joint, initial encounter; I10 Essential (primary) hypertension; E78.5 Hyperlipidemia, unspecified; E66.01 Morbid (severe) obesity due to excess calories; Z68.42 Body mass index [BMI] 45.0-49.9, adult; N40.0 Benign prostatic hyperplasia without lower urinary tract symptoms; Z86.711 Personal history of pulmonary embolism; Z79.899 Other long term (current) drug therapy
CPT/HCPCS: 20680; 36415; 71045; 80053; 80061; 83721; 84443; 84484; 85027; 87070; 87075; 93005; 93268; 97161; G0378; Q3014; 27488; J0690; J2250; J2270; J2405; J2704; J3010; L1830; A9270-GY

== ENCOUNTER 2024-02-26 17:53 | Emergency (ER) | payer MEDICARE ==
[2024-02-26 18:17] VITALS: TEMP 98.5
[2024-02-26 18:55] LABS: Absolute Neutrophil Ct (ANC) 6.62 x10^3/uL (1.78-5.38); BASOPHIL % 0.9 % (0.2-1.2); Eosinophil (Absolute #) 0.11 x10^3/uL (0.04-0.54); Hematocrit 40.3 % (40.1-51.0); Hemoglobin 13.4 g/dL (13.7-17.5); IMMATURE GRAN # 0.09 x10^3u/L (0.001-0.031); IMMATURE GRAN % 0.8 % (0.001-0.429); Lymphocyte (Absolute #) 3.39 x10^3/uL (1.32-3.57); Lymphocytes % 29.5 % (21.8-53.1); Mean Cell Volume 96.9 fL (79.0-92.2); Mean Corpuscular Hemoglobin 32.2 pg (25.7-32.2); Mean Corpuscular Hgb Concent. 33.3 g/dL (32.3-36.5); Mean Platelet Volume 9.3 fL (9.4-12.4); Monocyte (Absolute #) 1.17 x10^3/uL (0.30-0.82); Monocytes % 10.2 % (5.3-12.2); Neutrophil % 57.6 % (34.0-67.9); Platelet Count 206 x10^3/uL (163-337); Red Blood Count 4.16 x10^6/uL (4.63-6.08); Red Cell Distribution Width 12.6 % (11.6-14.4); White Blood Count 11.5 x10^3/uL (4.23-9.07)
[2024-02-26 19:09] LABS: ALBUMIN 4.1 g/dL (3.5-5.0); ANION GAP 12.1 MEQ/L (5-15); BILIRUBIN,TOTAL 0.7 mg/dL (0.2-1.3); Calcium 8.8 mg/dL (8.4-10.2); Creatinine 1 1.1 mg/dL (0.66-1.25); EST GLOMERULAR FILTRATION RATE 72.7 ML/MIN
[2024-02-26 20:44] VITALS: BP 141/87; PULSE 68; O2SAT 95
--- NOTE | 2024-02-26 21:05 | XRAY ---
Indication: Swelling. Status post surgery one day earlier. Comparison: January 26, 2024 3 view left knee demonstrates interval patella excision. Anterior soft tissue swelling/edema, minimal soft tissue air bubbles, and cutaneous cesar attest to recent surgery. Remaining knee unchanged again with osteopenia and intact knee arthroplasty.
--- NOTE | 2024-02-26 21:07 | XRAY ---
Indication: Pain and swelling. Status post knee surgery. 2-dimensional sonogram and color Doppler imaging major venous vessels left leg performed. Comparison: October 12, 2018 New tiny nonoccluding thrombus in popliteal vein. No thrombus seen in the remaining deep venous vessels left leg. Patent veins demonstrate normal compressibility and normal venous waveforms. Impression: New tiny nonoccluding DVT popliteal vein. Comment: Preliminary report was given.
--- NOTE | 2024-02-26 21:11 | ERPHSYRPT ---
- History of Present Illness Time Seen by Provider: 02/26/24 18:02 Source: patient Exam Limitations: no limitations Patient Subjective Stated Complaint: Pt had his left knee cap removed yesterday and advised the doctor that the silver bandages that they place on him he has reactions to, pt states that the swelling is all due from the bandage and did not have this swelling yesterda Triage Nursing Assessment: Pt was brought to the ER by his son, hypertensive, rates pain as 3 while laying and 8 while walking, pt walks with a walker, right knee an dlower leg is swollen, pulses normal, skin cool to touch around bandage but warm where the bandage covers, denies difficulty breathing Physician History: 68-year-old male with history of hypertension, hyperlipidemia, GERD, arthritis with some patellar surgery done here at [facility], discharged yesterday presented in the ER with complaints of increasing pain and swelling around the knee. Patient does have history of PE and is on Lovenox, not taking Coumadin f or the last few days. Patient thinks this is secondary to the Band-Aid she has as he had a similar kind of reaction previously when he had an total knee replacement done many years ago. He is taking his routine pain medication but has some increased pain since morning. No fever or chills reported. Allergies/Adverse Reactions: fentanyl Adverse Reaction (Verified 02/26/24 18:18) Home Medications: Omeprazole 20 MG [Prilosec 20 mg] 20 mg PO DAILY 05/23/19 [History] Losartan Potassium 50 mg PO DAILY 08/01/20 [History] Oxybutynin Chloride [Oxybutynin Chloride ER] 10 mg PO DAILY 02/04/24 [History] Simvastatin 10 mg [Zocor 10MG] 10 mg PO DAILY 02/04/24 [History] Tamsulosin HCl 0.4 mg [Flomax 0.4 MG] 0.4 mg PO DAILY 02/04/24 [History] Warfarin Sodium 12 mg PO DAILY 02/26/24 [History] Hx Tetanus, Diphtheria Vaccination/Date Given: No Hx Influenza Vaccination/Date Given: No Hx Pneumococcal Vaccination/Date Given: No Travel Risk - International Travel Have you traveled outside of the country in past 3 weeks: No - Emerging Infectious Disease Are you exhibiting symptoms associated with any current EIDs: No - Review of Systems Constitutional: No Symptoms Ears, Nose, & Throat: No Symptoms Respiratory: No Symptoms Cardiac: No Symptoms Abdominal/Gastrointestinal: No Symptoms Musculoskeletal: Joint Redness, Joint Pain Skin: No Symptoms Neurological: No Symptoms Endocrine: No Symptoms - Past Medical History Pertinent Past Medical History: Yes Neurological History: Migraines, Other ENT History: No Pertinent History Cardiac History: High Cholesterol, Hypertension Respiratory History: Pulmonary Embolism Endocrine Medical History: No Pertinent History Musculoskeletal History: Arthritis, Other GI Medical History: GERD, Gallbladder Disease, Hernia History: No Pertinent History Psycho-Social History: No Pertinent History Male Reproductive Disorders: No Pertinent History Other Medical History: HS BLOOD CLOTS, PE in 2012, headaches, knee replacement man, head bleed about 6 weeks ago - Past Surgical History Past Surgical History: Yes Neuro Surgical History: No Pertinent History Cardiac: No Pertinent History Respiratory: No Pertinent History Gastrointestinal: Appendectomy, Cholecystectomy, Hernia Repair Genitourinary: No Pertinent History Musculoskeletal: Joint Replacement Male Surgical History: Vasectomy Other Surgical History: L Knee replacement. right knee scope done twice. left knee scoped once prior to this recent replacement. RIGHT KNEE REPLACMENT Significant Family History: heart disease, diabetes, hypertension - Social History Smoking Status: Former smoker Exposure to second hand smoke: No Alcohol Use: None Drug Use: none Patient Lives Alone: No - Social Determinants of Health Will the patient participate in the screening: Yes Do you worry about a steady place to live?: No Do you have any problems with any of the following?: No known problems In the past 12 months,have you had to go without utilities?: No Transportation Issues: No Has anyone in your support network made you feel unsafe?: No Have you or anyone in your house had to go without enough: No - Nursing Vital Signs Nursing Vital Signs: Initial Vital Signs Temperature 98.5 F 02/26/24 18:09 Pulse Rate 81 02/26/24 18:09 O2 Sat by Pulse Oximetry 96 02/26/24 18:09 Pain Scale Pain Intensity 3 - Physical Exam General Appearance: no apparent distress, alert Eyes, Ears, Nose, Throat Exam: normal ENT inspection Neck Exam: normal inspection, full range of motion Cardiovascular/Respiratory Exam: normal breath sounds, regular rate/rhythm Legs Exam: left leg: soft tissue tenderness (Calf tenderness), swelling Knees Exam: right knee: non-tender, normal inspection, normal range of motion, no evidence of injury, left knee: bone tenderness, joint effusion, soft tissue tenderness (Mild increased temperature.), swelling Neuro/Tendon Exam: normal sensation, normal motor functions, normal tendon functions Mental Status Exam: alert, 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, cooperative Skin Exam: normal color SpO2 Interpretation: normal SpO2: 95 O2 Delivery: Room Air Lab/Rad Data: Laboratory Result Diagrams 02/26/24 18:50 02/26/24 18:50 Laboratory Results 02/26/24 02/26/24 02/26/24 Range/Units 19:05 18:50 18:50 WBC (4.23-9.07) x10^3/uL RBC (4.63-6.08) x10^6/uL Hgb (13.7-17.5) g/dL Hct (40.1-51.0) % MCV (79.0-92.2) fL MCH (25.7-32.2) pg MCHC (32.3-36.5) g/dL RDW (11.6-14.4) % Plt Count (163-337) x10^3/uL MPV (9.4-12.4) fL Gran % (34.0-67.9) % Immature Gran % (Auto) (0.001-0.429) % Nucleat RBC Rel Count (0.00-0.2) % Eos # (Auto) (0.04-0.54) x10^3/uL Immature Gran # (Auto) (0.001-0.031) x10^3u/L Absolute Lymphs (auto) (1.32-3.57) x10^3/uL Absolute Monos (auto) (0.30-0.82) x10^3/uL Absolute Nucleated RBC (0.00-0.012) x10^3u/L Lymphocytes % (21.8-53.1) % Monocytes % (5.3-12.2) % Eosinophils % (0.8-7.0) % Basophils % (0.2-1.2) % Absolute Granulocytes (1.78-5.38) x10^3/uL Basophils # (0.01-0.08) x10^3/uL ESR 2 (0-15) mm/hr Sodium 137 (135-145) mmol/L Potassium 4.0 (3.5-5.1) mmol/L Chloride 102 (98-107) mmol/L Carbon Dioxide 27 (22-30) mmol/L Anion Gap 12.1 (5-15) MEQ/L BUN 28 H (9-20) mg/dL Creatinine 1.10 (0.66-1.25) mg/dL Estimated GFR 72.7 ML/MIN Glucose 100 (74-106) mg/dL Lactic Acid 1.2 (0.4-2.0) Calcium 8.8 (8.4-10.2) mg/dL Total Bilirubin 0.70 (0.2-1.3) mg/dL AST 37 (17-59) U/L ALT 23 (0-50) U/L Alkaline Phosphatase 73 (38-126) U/L Serum Total Protein 7.0 (6.3-8.2) g/dL Albumin 4.1 (3.5-5.0) g/dL 02/26/24 Range/Units 18:50 WBC 11.5 H (4.23-9.07) x10^3/uL RBC 4.16 L (4.63-6.08) x10^6/uL Hgb 13.4 L (13.7-17.5) g/dL Hct 40.3 (40.1-51.0) % MCV 96.9 H (79.0-92.2) fL MCH 32.2 (25.7-32.2) pg MCHC 33.3 (32.3-36.5) g/dL RDW 12.6 (11.6-14.4) % Plt Count 206 (163-337) x10^3/uL MPV 9.3 L (9.4-12.4) fL Gran % 57.6 (34.0-67.9) % Immature Gran % (Auto) 0.8 H (0.001-0.429) % Nucleat RBC Rel Count 0.0 (0.00-0.2) % Eos # (Auto) 0.11 (0.04-0.54) x10^3/uL Immature Gran # (Auto) 0.09 H (0.001-0.031) x10^3u/L Absolute Lymphs (auto) 3.39 (1.32-3.57) x10^3/uL Absolute Monos (auto) 1.17 H (0.30-0.82) x10^3/uL Absolute Nucleated RBC 0.00 (0.00-0.012) x10^3u/L Lymphocytes % 29.5 (21.8-53.1) % Monocytes % 10.2 (5.3-12.2) % Eosinophils % 1.0 (0.8-7.0) % Basophils % 0.9 (0.2-1.2) % Absolute Granulocytes 6.62 H (1.78-5.38) x10^3/uL Basophils # 0.10 H (0.01-0.08) x10^3/uL ESR (0-15) mm/hr Sodium (135-145) mmol/L Potassium (3.5-5.1) mmol/L Chloride (98-107) mmol/L Carbon Dioxide (22-30) mmol/L Anion Gap (5-15) MEQ/L BUN (9-20) mg/dL Creatinine (0.66-1.25) mg/dL Estimated GFR ML/MIN Glucose (74-106) mg/dL Lactic Acid (0.4-2.0) Calcium (8.4-10.2) mg/dL Total Bilirubin (0.2-1.3) mg/dL AST (17-59) U/L ALT (0-50) U/L Alkaline Phosphatase (38-126) U/L Serum Total Protein (6.3-8.2) g/dL Albumin (3.5-5.0) g/dL - Progress Progress: improved, re-examined Progress Note: 02/26/24 21:28 68-year-old is evaluated in the ER for left knee pain and swelling after recent surgery done at [facility]. Patient is offered pain medication which he declined. Workup showed white count of 11, normal lactate and sed rate. Fairly unremarkable chemistries. X-rays are negative for any acute fracture dislocation. I have obtained ultrasound which is negative for any occlusive DVT. Patient is on Lovenox. Patient has mild erythema. I have shared the results of workup and imaging with Dr. Tristan the primary surgeon for the patient, recommended obtaining sunrise view which reveals obtained and shared. I do not think patient has septic joint,/DVT/postop infection. Per Dr. Tristan recommendation bandages removed and placed Telfa and Breezy wrapped. He is advised to restart taking his Coumadin from [facility] per Dr. Tristan recommendations. I do not think patient needs any further workup and can be d ischarged with outpatient orthopedics follow-up. Discussed signs symptoms of worsening needing return to ER which he seems understanding. Stable for discharge. 02/26/24 22:[address] Tristan patient needed his son rise view of knee which is obtained. Patient was very anxious and wanted to leave. Immediate after obtaining x-ray patient left. I have shared x-ray imaging with Dr. Tristan who recommended patient to be seen outpatient and avoiding exertion as it does not seem to be an exact center and also does not seem to be dislocated either. We will call patient. Counseled pt/family regarding: lab results, diagnosis, need for follow-up, rad results Medical Desision Making - Independent Historian Additional History obtained from: Family - Discussion of managment Care discussed with:: specialist (Dr. Tristan orthopedic surgeon) Reviewed:: Test results Agreed on:: Treatment plan, need for follow-up Will see patient: In office - Diagnostic Testing Diagnostic test were ordered, analyzed, and reviewed by me: Yes Radiological Interpretation: Interpreted by me, Reviewed by me, Teleradiologist Report - Departure Departure Disposition: Home Clinical Impression: Acute postoperative pain of left knee Condition: Stable Critical Care Time: No Referrals: TRUDY LATIF MD [Primary Care Provider] - Follow up with PCP 1 day LUIS TRISTAN MD [ACTIVE STAFF] - Follow up other (Call for appointment for reevaluation 1 to 2 days.) Instructions: Knee Pain ED Additional Instructions: Continue with your current pain medications. Restart taking Coumadin and follow-up with Coumadin clinic. Avoid exertional activities. Follow-up with orthopedics for reevaluation early next week. Return to ER for intractable pain swelling, difficulty movements or if develop fever chills etc. Use cane/walker for ambulation time.
--- NOTE | 2024-02-27 07:20 | XRAY ---
Indication: Swelling following surgery. [place] view. Comparison: Taken earlier in the day. Single sunrise view left knee demonstrates patella slightly subluxed medially relative to femoral prosthesis. Stable postoperative soft tissue swelling, subcutaneous emphysema, and cutaneous cesar.
== END 2024-02-26 21:40 | disposition left against medical advice (07) ==
LOC: ED 17:53
DX: G89.18 Other acute postprocedural pain (principal); E78.5 Hyperlipidemia, unspecified; I10 Essential (primary) hypertension; Z79.01 Long term (current) use of anticoagulants; Z79.899 Other long term (current) drug therapy
CPT/HCPCS: 36415; 73560; 73562; 80053; 83605; 85025; 85652; 87040; 93971; 99283